=== PATIENT | male | born 1960 | race Caucasian/White ===

== ENCOUNTER 2016-06-03 07:58 | Inpatient (IN) | payer BC ==
[2016-05-13 10:55] VITALS: Ht 170.2 cm; Wt 108.5 kg
[2016-05-13 11:12] VITALS: BP_SYST 130; RESP 20; TEMP 98.5
[~2016-06-03] VITALS: Ht 170.2 cm; Wt 108.5 kg
[2016-06-03] VITALS (25 sets, daily range): BP systolic 117–154; RESP 14–20; TEMP 97.4–98.6
[2016-06-03] MEDS ORDERED: CEFAZOLIN 2,000 MG in SODIUM CHLORIDE 0.9% 100 ML IV ONE (08:10)
[2016-06-03] MEDS ORDERED: ROPIVACAINE 0.5% 139 MG, EPINEPHrine 1:1,000 0.2 MG, KETOROLAC INJ 30 MG, MORPHINE 10 MG SUBQ ONE ×4 (08:10)
[2016-06-03] MEDS ORDERED: MIDAZOLAM 2 MG/2 ML INJ IV ONE (08:20)
[2016-06-03] MEDS ORDERED: GLYCOPYRROLATE 0.2 MG/ML VIAL IV ONE ×2 (08:20→10:40)
[2016-06-03] MEDS ORDERED: LACT RINGERS 1,000 ML IV SCH ×2 (08:20→12:50)
[2016-06-03] MEDS ORDERED: LIDOCAINE 1% BUFFERED 1 ML SYR INTRADERM PRN (08:20)
[2016-06-03] MEDS ORDERED: OXYCODONE 5 MG TAB PO PRN (10:00)
[2016-06-03] MEDS ORDERED: MEPERIDINE 25 MG/ML IV PRN (10:00)
[2016-06-03] MEDS ORDERED: MORPHINE 4 MG/ML SYR IV PRN (10:00)
[2016-06-03] MEDS ORDERED: ONDANSETRON 4 MG VIAL IV PRN ×3 (10:00→12:50)
[2016-06-03] MEDS ORDERED: MORPHINE 2 MG/ML SYR IV PRN ×3 (10:00→12:50)
[2016-06-03] MEDS ORDERED: ROPIVACAINE 5 MG/ML 30 ML EPIDURAL ONE (10:32)
[2016-06-03] MEDS ORDERED: ONDANSETRON 4 MG VIAL IV PUSH ONE (10:40)
[2016-06-03] MEDS ORDERED: FENTANYL 100 MCG/2 ML AMP IV ONE (10:40)
[2016-06-03] MEDS ORDERED: LIDOCAINE 2% SYR 5 ML IV ONE (10:40)
[2016-06-03] MEDS ORDERED: NEOSTIGMINE 10 MG/10 ML VIAL IV ONE (10:40)
[2016-06-03] MEDS ORDERED: PROPOFOL 20 ML PER ML IV ONE (10:40)
[2016-06-03] MEDS ORDERED: DEXAMETHASONE 4 MG/ML VIAL IV ONE (10:40)
[2016-06-03] MEDS ORDERED: ROCURONIUM 50 MG VIAL IV ONE (10:40)
[2016-06-03] MEDS ORDERED: DILAUDID 1 MG/ML AMP IV ONE (10:40)
[2016-06-03] MEDS ORDERED: ACETAMINOPHEN 1,000 MG/100 ML IV ONE (10:40)
[2016-06-03] MEDS ORDERED: ACETAMINOPHEN 325 MG TAB PO PRN (12:50)
[2016-06-03] MEDS ORDERED: DIPHENHYDRAMINE 25 MG CAP PO PRN (12:50)
[2016-06-03] MEDS ORDERED: TEMAZEPAM 15 MG CAP PO PRN (12:50)
[2016-06-03] MEDS ORDERED: OXYCODONE/APAP 5/325 TAB PO PRN (12:50)
[2016-06-03] MEDS: DILAUDID 1 MG/ML AMP IV PRN ×2 (12:53→13:13)
[2016-06-03] MEDS ORDERED: BACITRACIN 50,000 UNITS INJ IRRIG ONE (14:07)
[2016-06-03] MEDS: DOCUSATE SOD 100 MG CAP PO SCH ×2 (15:16→20:53)
[2016-06-03] MEDS: MAG HYDROX 30 ML UDC PO SCH (15:16)
[2016-06-03] MEDS: CEFAZOLIN 2,000 MG in SODIUM CHLORIDE 0.9% 100 ML IV SCH ×2 (15:17→20:54)
[2016-06-03] MEDS: POLYETHYLENE GLYCOL 17 GM PACKET PO SCH (17:47)
[2016-06-03] MEDS: SENNA 8.6 MG TAB PO SCH (20:53)
[2016-06-03] MEDS: PANTOPRAZOLE 40 MG TAB PO SCH (20:53)
[2016-06-04] MEDS: CEFAZOLIN 2,000 MG in SODIUM CHLORIDE 0.9% 100 ML IV SCH ×2 (02:03→09:07)
[2016-06-04] MEDS: FONDAPARINUX 2.5 MG SYR SUBQ SCH (06:00)
[2016-06-04 08:20] VITALS: BP_SYST 130; RESP 18; TEMP 99
[2016-06-04] MEDS: SENNA 8.6 MG TAB PO SCH ×2 (09:07→20:42)
[2016-06-04] MEDS: MAG HYDROX 30 ML UDC PO SCH (09:07)
[2016-06-04] MEDS: DOCUSATE SOD 100 MG CAP PO SCH ×2 (09:07→20:42)
[2016-06-04] MEDS: LISINOPRIL 20 MG TAB PO SCH (09:07)
[2016-06-04] MEDS: POLYETHYLENE GLYCOL 17 GM PACKET PO SCH (09:07)
[2016-06-04 12:08] VITALS: BP_SYST 120; TEMP 99.2
[2016-06-04 15:46] VITALS: BP_SYST 126; RESP 18; TEMP 99.1
[2016-06-04] MEDS ORDERED: FLEET ENEMA 132 ML BTL RECTAL PRN (17:10)
[2016-06-04] MEDS ORDERED: BISACODYL 10 MG SUPP RECTAL PRN (17:10)
[2016-06-04] MEDS: OXYCODONE/APAP 5/325 TAB PO PRN ×2 (17:38→22:21)
[2016-06-04 19:32] VITALS: BP_SYST 128; RESP 16; TEMP 97.6
[2016-06-04] MEDS: MORPHINE 4 MG/ML SYR IV PRN ×3 (19:39→22:20)
[2016-06-04] MEDS: PANTOPRAZOLE 40 MG TAB PO SCH (20:42)
[2016-06-04 22:38] VITALS: BP_SYST 107; RESP 18; TEMP 98.6
[2016-06-05] MEDS: MORPHINE 4 MG/ML SYR IV PRN (00:26)
[2016-06-05] MEDS ORDERED: KETOROLAC 30 MG/ML VIAL IV PRN (00:30)
[2016-06-05] MEDS: DILAUDID 1 MG/ML AMP IV PRN ×5 (01:01→05:59)
[2016-06-05] MEDS: OXYCODONE/APAP 5/325 TAB PO PRN ×2 (02:58→08:50)
[2016-06-05 03:01] VITALS: BP_SYST 117; RESP 16; TEMP 98.4
[2016-06-05] MEDS: FONDAPARINUX 2.5 MG SYR SUBQ SCH (05:59)
[2016-06-05] MEDS ORDERED: DILAUDID 1 MG/ML AMP IV PRN (06:30)
[2016-06-05 07:34] VITALS: BP_SYST 125; RESP 16; TEMP 99.6
[2016-06-05] MEDS: MAG HYDROX 30 ML UDC PO SCH (08:48)
[2016-06-05] MEDS: DOCUSATE SOD 100 MG CAP PO SCH (08:48)
[2016-06-05] MEDS: SENNA 8.6 MG TAB PO SCH (08:48)
[2016-06-05] MEDS: LISINOPRIL 20 MG TAB PO SCH (08:48)
[2016-06-05] MEDS: POLYETHYLENE GLYCOL 17 GM PACKET PO SCH (08:48)
[2016-06-05 11:58] VITALS: BP_SYST 120; RESP 16; TEMP 98.3
[2016-06-05 12:47] VITALS: BP_SYST 120; RESP 16; TEMP 98.3
[2016-06-05 13:30] VITALS: RESP 18
== END 2016-06-05 15:37 | disposition home health service (06) | DRG 462 ==
LOC: ENRESERVTM → ENRESERVDT → SDS 08:02 → 2NO 13:18
PROVIDERS: ADMIT Internal Medicine; ATTEND Internal Medicine
PROC: 0SRC0J9 Replacement of Right Knee Joint with Synthetic Substitute, Cemented, Open Approach (ICD-10-PCS; 2016-06-03)
PROC: 8E0YXBZ Computer Assisted Procedure of Lower Extremity (ICD-10-PCS; 2016-06-03)
PROC: 3E0T3CZ (ICD-10-PCS; 2016-06-03)
PROC: 0SRD0J9 Replacement of Left Knee Joint with Synthetic Substitute, Cemented, Open Approach (ICD-10-PCS; principal; 2016-06-03 08:40)
DX: M17.0 Bilateral primary osteoarthritis of knee (principal); I10 Essential (primary) hypertension; J30.2 Other seasonal allergic rhinitis
CPT/HCPCS: 80048; 85014; 85018; 85025; 86850; 86900; 86901; 94762; 94799